=== PATIENT | male | born 1990 | race Two or more races ===

== ENCOUNTER 2017-05-19 05:13 | Emergency (ER) | payer SELFPAY ==
[~2017-05-19] VITALS: Ht 170.2 cm; Wt 66.7 kg
[2017-05-19 05:15] VITALS: BP 127/69
== END 2017-05-19 05:30 | disposition home or self-care (01) ==
LOC: ER 05:18
DX: Z00.8 Encounter for other general examination (principal); Z59.0 Homelessness
CPT/HCPCS: A4606; Z7610